=== PATIENT | female | born 1995 | race African-American/Black ===

== ENCOUNTER 2017-10-23 12:05 | Emergency (ER) | payer BC, OTHER, SELFPAY ==
[2017-10-23 13:22] LABS: #Basophils 0.1 thou/uL (0.0-0.2); #Eosinphils 0.1 thou/uL (0.0-0.7); #Lymphocytes 3.1 thou/uL (1.20-3.40); #Monocytes 0.5 thou/uL (0.11-0.59); #Neutrophils 8.7 thou/uL (1.40-6.50); %Basophils 0.4 % (0.0-1.0); %Lymphocytes 24.7 % (21.0-51.0); %Monocytes 3.8 % (0.0-10.0); Hematocrit 45.3 % (36.0-47.0); Mean Platelet Volume 8.1 fL (7.4-10.4); White Blood Cell (WBC) Count 12.4 thou/uL (4.8-10.8)
[2017-10-23 13:44] LABS: ALT (SGPT) 23 U/L (8-55); AST (SGOT) 19 U/L (5-34); Alkaline Phosphatase 84 U/L (40-150); Anion Gap 11 mmol/L (10-20); BUN (Urea Nitrogen) 9 mg/dL (7.0-18.7); Bilirubin, Total 0.3 mg/dL (0.2-1.2); Calc. Creatinine Clearance 0 mL/min (70-130); Calcium 9.5 mg/dL (7.8-10.44); Carbon Dioxide 24 mmol/L (22-29); Chloride 105 mmol/L (98-107); Estimated GFR-MDRD Greater than 90; Globulin 3.7 g/dL (2.4-3.5); Protein, Total 7.8 g/dL (6.0-8.3)
[2017-10-23 15:51] LABS: Bilirubin Negative (Negative); Blood, Urine Negative (Negative); Glucose, Urine (Dipstick) Negative (Negative); Ketone, Urine Negative (Negative); Nitrite Negative (Negative); Protein, Urine (Dipstick) Negative (Neg-Trace)
[2017-10-23 15:54] LABS: Bacteria/HPF Rare-Few HPF (None Seen); Hyaline Casts/LPF 0-3 HYALINE CAST LPF (0-3 Hyaline); RBC/HPF 0-3 HPF (0-3)
[2017-10-23 16:07] LABS: Renal Epithelial None Seen HPF (0-3); Transitional Epithelial NONE SEEN HPF (0-3)
[2017-10-23] MEDS ORDERED: Ketorolac Tromethamine 30 MG/ML VIAL ONE (16:33)
--- NOTE | 2017-10-23 17:22 | CT ---
CT HEAD NONCONTRAST: 10/23/17 HISTORY: Headache. COMPARISON: 02/01/11. FINDINGS: There is no evidence of acute intracranial hemorrhage or infarct. The ventricles appear normal in siz e, shape and position. There is no mass effect or shift of midline structures. The visualized paranas al sinuses remain well aerated. IMPRESSION: No acute intracranial abnormalities are demonstrated on noncontrast CT head. POS: [facility]
== END 2017-10-23 16:59 | disposition home or self-care (01) ==
LOC: ERS 12:05
DX: R51 Headache (principal)
CPT/HCPCS: 36415; 70450; 80053; 81003; 81015; 81025; 85025; 96372; J1885

== ENCOUNTER 2017-12-19 06:09 | Emergency (ER) | payer BC, OTHER ==
[2017-12-19] MEDS ORDERED: traMADol HCl 50 MG TAB ONE (06:30)
== END 2017-12-19 06:38 | disposition home or self-care (01) ==
LOC: ERS 06:09
DX: K02.9 Dental caries, unspecified (principal)
CPT/HCPCS: 99282

== ENCOUNTER 2019-03-06 05:41 | Day surgery (SDC) | payer OTHER ==
[2019-03-04 11:44] VITALS: BMI 45.3
--- NOTE | 2019-03-04 16:55 | HP ---
Scheduled for outpatient surgery on March 06. HISTORY OF PRESENT ILLNESS: Ms. Yepez is a 23-year-old female, G1, P0, who has a 7-week embryonic demise, confirmed with ultrasound x2. Her blood type is O positive. She had waited spontaneous miscarriage over 2 weeks and she has had no bleeding. She was offered Cytotec for the miscarriage induction, but she declines and wishes to proceed with suction D and C. PAST MEDICAL HISTORY: Negative. PAST SURGICAL HISTORY: Negative. SOCIAL HISTORY: She is a nonsmoker. No excessive alcohol use. ALLERGIES: SHE HAS NO KNOWN DRUG ALLERGIES. CURRENT MEDICATIONS: Daily vitamin. FAMILY HISTORY: Her mother has diabetes and renal failure secondary to complication of diabetes along with heart failure. PHYSICAL EXAMINATION: VITAL SIGNS: Her height is 5 feet 4 inches and weight 263 pounds with a BMI of 45. Blood pressure is 122/70, pulse 67, respirations 18, and O2 saturation on room air is 99%. HEENT: Within normal limits. CHEST: Clear to auscultation. HEART: Regular rate and rhythm. S1 and S2 heart sounds. ABDOMEN: Soft, nontender, and nondistended with no palpable masses. PELVIC: Vulva and vagina had no lesions. Cervix had no lesions. The patient reports a normal Pap smear in 2018. Uterus is 8-week size and nontender. Adnexa are nontender with no masses. Her blood type is O positive. ASSESSMENT: This is a 23-year-old female, G1, P0, with 7-week embryonic demise. PLAN: For suction D and C set for 03/06/2019. Job ID: [id number]
[2019-03-06] MEDS ORDERED: Promethazine HCl 25 MG/ML VIAL ONE (06:49)
[2019-03-06] MEDS ORDERED: Fentanyl 100 MCG/2 ML VIAL ONE (06:49)
[2019-03-06] MEDS ORDERED: Midazolam HCl 2 mg/2 ml Vial ONE (06:55)
--- NOTE | 2019-03-06 08:06 | OP ---
DATE OF PROCEDURE: 03/06/2019 PREOPERATIVE DIAGNOSIS: A 23-year-old white female, G1, P0, in 7 to 8 week embryonic demise. POSTOPERATIVE DIAGNOSIS: A 23-year-old white female, G1, P0, in 7 to 8 week embryonic demise. PROCEDURE PERFORMED: Suction D and C. Blood type is O positive. Pathology is products of conception. ANESTHESIA: General endotracheal. ESTIMATED BLOOD LOSS: 200 mL. COMPLICATIONS: None. COUNTS: Correct x2. FINDINGS: Uterus at 8-week size, anteverted with removal of tissue consistent with products of conception. DISPOSITION: Recovery room, stable. DESCRIPTION OF PROCEDURE: The patient previously received informed consent in regard to surgery. She was taken back to the operating room, where she received a general anesthetic agent without complications. She was placed in dorsal lithotomy position with the use of Jaime stirrups and prepped and draped in usual sterile fashion. An in and out catheterization of the bladder was performed at this time with 100 mL of clear urine noted. The uterus was examined, it is 8 weeks anteverted in position. A side-arm speculum was placed in vagina. Anterior lip of the cervix was grasped with single-tooth tenaculum. The uterus sounded to 11 cm. A size 8 mm curved curette was then selected. The uterus was then evacuated with the suction curettage at 60 to 70 mm of pressure and once most of the material had been removed, a sharp curettage of the cavity was again performed loosening up any remaining fragments. The uterine cavity again was resectioned with a suction curette. After minimal tissue was noted to not be retrievable any further, this surgery suction was discontinued. This tenaculum was then removed by manual massage. The uterus was carried out and no active heavy bleeding was noted. The patient was then awakened from anesthesia and transferred to recovery room in stable condition. Job ID: [id number]
[2019-03-06] MEDS ORDERED: HYDROcodone/Acetaminophen 5/325 mg Tablet ONE (08:47)
[2019-03-06] MEDS ORDERED: PHENYLEPHRINE-NS 100 MCG/ML 10 ML SYRINGE ONE (14:39)
[2019-03-06] MEDS ORDERED: PROPOFOL 200 MG/20 ML VIAL ONE (14:39)
[2019-03-06] MEDS ORDERED: Lidocaine 1% PF 5 ML VIAL ONE (14:39)
[2019-03-06] MEDS ORDERED: Ondansetron PF 4 MG/2 ML Vial ONE (14:39)
[2019-03-06] MEDS ORDERED: Dexamethasone 20 MG/5 ML VIAL ONE (14:39)
[2019-03-06] MEDS ORDERED: Ketorolac Tromethamine 30 MG/ML VIAL ONE (14:39)
== END 2019-03-06 09:40 | disposition home or self-care (01) ==
LOC: SDC 05:41
PROVIDERS: ATTEND Obstetrics & Gynecology
PROC: 10D18ZZ Extraction of Products of Conception, Retained, Via Natural or Artificial Opening Endoscopic (ICD-10-PCS; principal; 2019-03-06)
DX: O02.1 Missed abortion (principal)
CPT/HCPCS: 88305; J0690; J2250; J2550; J3010

== ENCOUNTER 2019-07-13 17:27 | Emergency (ER) | payer OTHER, SELFPAY ==
--- NOTE | 2019-07-13 18:29 | ULT ---
EXAM: Pelvic ultrasound HISTORY: Pelvic pain in a female COMPARISON: None TECHNIQUE: Multiple grayscale and color Doppler images were obtained in a transabdominal pelvic ultra sound. Spectral analysis of the Doppler waveforms of the ovaries were performed. FINDINGS: UTERUS: There is an intrauterine gestational sac. This contains a yolk sac and pole. [place]-rump length: 6.83 cm which estimates gestational age at 13 weeks 1 day. A heart rate is detected at 178 bpm. No evidence of subchorionic hemorrhage. No free fluid is seen in the pelvis. RIGHT OVARY: Normal flow without focal mass. LEFT OVARY: Normal flow without focal mass. IMPRESSION: Single live intrauterine with estimated age of 13 weeks 1 day.
== END 2019-07-13 19:45 | disposition home or self-care (01) ==
LOC: ERS 17:27
DX: O99.89 Other specified diseases and conditions complicating pregnancy, childbirth and the puerperium (principal); R10.32 Left lower quadrant pain; Z3A.14 14 weeks gestation of pregnancy; W18.30XA Fall on same level, unspecified, initial encounter
CPT/HCPCS: 76856; 93976